=== PATIENT | male | born 1965 ===

== ENCOUNTER 2018-02-26 23:03 | Emergency (ER) | payer BC ==
[~2018-02-26] VITALS: Ht 195.6 cm; Wt 95.3 kg
--- NOTE | 2018-02-26 23:30 | NUR ---
PT IN BED. PT'S VISITOR AT BEDSIDE. PT PRESENTING TO ED W/ C/O INTERMITTENT EPIGASTRIC PAIN X 2 HRS.
[2018-02-26] MEDS ORDERED: PANTOPRAZOLE SODIUM 40 MG TABLET.DR PO ONE ×2 (23:45→23:56)
[2018-02-26] MEDS ORDERED: LIDOCAINE VISCUS 2% 15 ML UDC MM ONE (23:45)
[2018-02-26] MEDS ORDERED: MAG HYDROX/AL HYDROX/SIMETH 30 ML LIQUID UDC PO ONE (23:45)
[2018-02-26] MEDS ORDERED: MAG HYDROX/AL HYDROX/SIMETH 30 ML LIQUID UDC ONE (23:55)
[2018-02-26] MEDS ORDERED: LIDOCAINE VISCUS 2% 15 ML UDC ONE (23:55)
[2018-02-27 00:02] LABS: BASOPHILS % (AUTO) 0.5 % (0.0-2.0); EOSINOPHILS # (AUTO) 0.3 K/uL (0.0-0.7); EOSINOPHILS % (AUTO) 2.9 % (0.0-7.0); HEMATOCRIT 43.2 % (36.7-47.1); HEMOGLOBIN 14.9 g/dL (12.5-16.3); LYMPHOCYTES # (AUTO) 1.8 K/uL (20.0-40.0); LYMPHOCYTES % (AUTO) 19.3 % (20.5-51.5); MEAN CORPUSCULAR HEMOGLOBIN 29.8 uug (23.8-33.4); MEAN CORPUSCULAR HGB CONC 35 g/dL (32.5-36.3); MEAN CORPUSCULAR VOLUME 86.2 fL (73.0-96.2); MONOCYTES # (AUTO) 0.5 K/uL (2.0-10.0); MONOCYTES % (AUTO) 5.2 % (0.0-11.0); NEUTROPHILS # (AUTO) 6.8 K/uL (1.8-8.9); NEUTROPHILS % (AUTO) 72.1 % (38.5-71.5); PLATELET COUNT (AUTO) 225 K/uL (152-348); RED BLOOD CELL COUNT(AUTO) 5.01 MIL/uL (4.06-5.63); WHITE BLOOD COUNT (AUTO) 9.4 K/uL (3.6-10.2)
[2018-02-27] MEDS ORDERED: ONDANSETRON 4 MG/2 ML VIAL IV ONE (00:15)
[2018-02-27] MEDS ORDERED: MORPHINE SULFATE 2 MG/1 ML DISP.SYRIN IV ONE (00:15)
[2018-02-27 00:17] LABS: CREATININE 1.2 mg/dL (0.6-1.3); POTASSIUM 3.9 mmol/L (3.5-5.1)
[2018-02-27 00:23] LABS: BILIRUBIN,DIRECT 0.1 mg/dL (0.0-0.2); BILIRUBIN,TOTAL 0.4 mg/dL (0.2-1.0); TOTAL PROTEIN, SERUM 7.6 g/dL (6.4-8.2)
[2018-02-27] MEDS ORDERED: ONDANSETRON 4 MG/2 ML VIAL ONE (00:30)
[2018-02-27] MEDS ORDERED: MORPHINE SULFATE 2 MG/1 ML DISP.SYRIN ONE (00:31)
[2018-02-27] MEDS ORDERED: MORPHINE SULFATE 4 MG/1 ML DISP.SYRIN IV ONE (00:45)
[2018-02-27] MEDS ORDERED: MORPHINE SULFATE 4 MG/1 ML DISP.SYRIN ONE (00:48)
--- NOTE | 2018-02-27 01:09 | NUR ---
PT IN BED. PT'S SPOUSE IS AT BEDSIDE. PT IS CALM AND COOPERATIVE. PT EXPRESSED EXPERIENCING A REDUCTION IN PAIN. VSS AND WNL. NO SIGNS OF DISTRESS WITNESSED AT THIS TIME.
--- NOTE | 2018-02-27 01:30 | NUR ---
Patient discharged to home in stable conditon. Written and verbal after care instructions given. Patient verbalizes understanding of instructions. Patient expressed reduced abdominal pain prior to discharge. Patient able to ambulate unassisted with steady gait. Patient left with all personal belongings.
[2018-02-27 01:40] VITALS: BP 135/80
== END 2018-02-27 01:30 | disposition home or self-care (01) ==
LOC: ER 23:07
DX: R10.13 Epigastric pain (principal); Z88.1 Allergy status to other antibiotic agents
CPT/HCPCS: 36415; 70030-TC; 71045; 83690; 85025; 93005; A4663; J2270; J2405; J7030

== ENCOUNTER 2022-08-07 17:24 | Emergency (ER) | payer BC ==
[~2022-08-07] VITALS: Ht 195.6 cm; Wt 97.5 kg
[2022-08-07 18:35] LABS: HEMATOCRIT 46.6 % (36.7-47.1); MEAN CORPUSCULAR HEMOGLOBIN 29.4 uug (23.8-33.4); MEAN CORPUSCULAR VOLUME 87.6 fL (73.0-96.2); PLATELET COUNT (AUTO) 241 K/uL (152-348)
[2022-08-07 18:49] LABS: CARBON DIOXIDE 29 mmol/L (21-32); CHLORIDE 103 mmol/L (98-107); CREATININE 1.4 mg/dL (0.6-1.3); GLUCOSE 81 mg/dL (74-106); POTASSIUM 3.8 mmol/L (3.5-5.1); UREA NITROGEN, BLOOD 19 mg/dL (7-18)
--- NOTE | 2022-08-07 20:30 | NUR ---
Patient discharged to home in stable condition. Written and verbal after care instructions given. Patient verbalizes understanding of instructions. Stressed follow up or return to ER for worsening s/s.
[2022-08-07 21:32] VITALS: BP 110/72
== END 2022-08-07 21:32 | disposition home or self-care (01) ==
LOC: ER 17:28
DX: R00.2 Palpitations (principal)
CPT/HCPCS: 36415; 84484; 85025; 93005; A4663